=== PATIENT | male | born 1950 | race Caucasian/White ===

== ENCOUNTER 2017-08-14 17:10 | Inpatient (IN) | payer OTHER ==
[~2017-08-14] VITALS: Ht 167.6 cm; Wt 87.0 kg
[~2017-08-14 17:10] MED LIST: ADULT ASPIRIN R81 MG PO; BENICAR20 MG PO; LIPITOR40 MG PO; METFORMIN HCL850 MG PO; NORVASC5 MG PO; POTASSIUM CITR10 MEQ PO
[2017-08-14 18:45] LABS: TROP-I INTERPRETATION NEGATIVE; TROPONIN-I < 0.01 ng/mL (0.0-0.30)
[2017-08-14 19:26] LABS: BASOPHIL (%) 0.3 % (0-1); EOSINOPHIL (%) 0.2 % (0-5); HEMATOCRIT 43.3 % (38.0-50.0); HEMOGLOBIN 15.1 G/DL (12.5-16.6); IMMATURE GRANULOCYTE (%) 0.3 % (0.0-0.7); LYMPHOCYTE (%) 6.6 % (15-42); LYMPHOCYTE COUNT 0.6 K/uL (1.0-2.8); MCH 30.8 PG (29.0-34.0); MCHC 34.9 G/DL (30.0-36.0); MCV 88.2 FL (86-99); MONOCYTE (%) 2.8 % (3-12); MONOCYTE COUNT 0.3 K/uL (0-0.8); NEUTROPHIL (%) 89.8 % (45-76); RBC DIS.WIDTH-CV 12.3 % (11.8-14.6); RBC DIS.WIDTH-SD 40.3 % (39-53); RED BLOOD COUNT 4.91 M/uL (4.00-5.50)
[2017-08-14 19:41] LABS: ALBUMIN 4.2 g/dL (3.2-4.8); CHLORIDE 105 mEq/L (99-109); POTASSIUM 4.3 mEq/L (3.7-5.4); SODIUM 138 mEq/L (136-147)
[2017-08-14 19:42] LABS: MAGNESIUM 1.8 mg/dL (1.3-2.7)
[2017-08-14 19:44] LABS: GLUCOSE 171 mg/dL (70-99)
[2017-08-14 19:46] LABS: TOTAL BILIRUBIN 0.6 mg/dL (0.0-1.0)
[2017-08-14 19:47] LABS: ALKALINE PHOSPHATASE 66 IU/L (3-129); GFR ESTIMATE (CALCULATED) > 59 mL/min/ (58.99-99999)
[2017-08-14 19:48] LABS: UREA NITROGEN (BUN) 15 mg/dL (9-23)
[2017-08-14 19:49] LABS: AST (GOT) 30 IU/L (2-34)
[2017-08-14 19:50] LABS: ALT (GPT) 58 IU/L (3-49)
[2017-08-14 19:51] LABS: LIPASE 17 U/L (1.0-51.0)
[2017-08-14 21:08] LABS: HEMATOLOGY COMMENT 1 SN; PLAT.SUFFICIENCY ADEQUATE; PLATELET COUNT 188 K/uL (156-360)
[2017-08-14] MEDS ORDERED: LANSOPRAZOLE30 MG PO (22:25)
[2017-08-14] MEDS ORDERED: VITAMIN D31000 UNIT PO (22:26)
[2017-08-14] MEDS ORDERED: GARLIC100 MG PO (22:26)
[2017-08-14] MEDS ORDERED: LUPRON DEPOT3.75 M1 IM (22:26)
[2017-08-14] MEDS ORDERED: VITAMIN C500 M1 PO (22:26)
[2017-08-14 23:00] LABS: APPEARANCE CLEAR ((CLEAR)); BILIRUBIN NEGATIVE; BLOOD NEGATIVE; COLOR YELLOW ((YELLOW)); GLUCOSE (STRIP) 50; KETONES 5; LEUKOCYTES NEGATIVE; NITRITE NEGATIVE; PROTEIN (STRIP) NEGATIVE; SPECIFIC GRAVITY 1.013 (1.000-1.030); UCUL ADDED? NO; UROBILINOGEN 0.2 MG/DL (0.2-1.0)
[2017-08-15 07:25] LABS: CHLORIDE 106 MEQ/L (99-109); CREATININE 0.9 MG/DL (0.6-1.3); GFR ESTIMATE (CALCULATED) > 59 mL/min/ (58.99-99999); GLUCOSE 124 mg/dL (70-99); SODIUM 139 MEQ/L (136-147); UREA NITROGEN (BUN) 13 mg/dL (9-23)
[2017-08-15 19:33] VITALS: BP 147/76
[2017-08-15 23:47] VITALS: BP 143/78
[2017-08-16 05:36] VITALS: BP 143/84
[2017-08-16 07:43] VITALS: BP 147/83
[2017-08-16 14:53] VITALS: BP 132/71
[2017-08-16 22:57] VITALS: BP 151/84
[2017-08-17 07:29] VITALS: BP 147/83
[2017-08-17 14:49] VITALS: BP 139/75
[2017-08-18 00:40] VITALS: BP 126/63
[2017-08-18] MEDS ORDERED: CEFTIN500 MG PO (07:13)
[2017-08-18] MEDS ORDERED: TRAMADOL HCL50 MG PO (07:14)
[2017-08-18 07:29] VITALS: BP 145/76
== END 2017-08-18 11:58 | disposition home or self-care (01) | DRG 149 ==
LOC: EME 17:10 → 3EAST 23:17 → EDOF 23:17 → ENRESERV 23:26 → 3EAST 08-15 19:08
PROVIDERS: Emergency Medicine; Family Medicine
DX: H83.09 Labyrinthitis, unspecified ear (principal); R42 Dizziness and giddiness; J01.00 Acute maxillary sinusitis, unspecified; E87.2 Acidosis; E86.0 Dehydration; E11.9 Type 2 diabetes mellitus without complications; I10 Essential (primary) hypertension; E78.5 Hyperlipidemia, unspecified; R32 Unspecified urinary incontinence; R74.0 Nonspecific elevation of levels of transaminase and lactic acid dehydrogenase [LDH]; K21.9 Gastro-esophageal reflux disease without esophagitis; Z85.07 Personal history of malignant neoplasm of pancreas; Z85.46 Personal history of malignant neoplasm of prostate; Z87.442 Personal history of urinary calculi
CPT/HCPCS: 70450; 70551; 71045; 74176; 80048; 80053; 81003; 82948; 83605; 83690; 83735; 84484; 85025; 87502; 93005; 99281; 99285; J2405; J2765; J2930; J7030; J7040; J7512; S0028